=== PATIENT | female | born 1945 | race African-American/Black ===

== ENCOUNTER 2018-08-25 10:58 | Inpatient (IN) | payer OTHER ==
[~2018-08-25] VITALS: Ht 167.6 cm; Wt 123.1 kg
[2018-08-25] VITALS (8 sets, daily range): BP systolic 109–231; BP diastolic 54–129
[~2018-08-25 10:58] MED LIST: AMLODIPINE BESY10 MG PO; ASPIRIN81 M2 PO; B-COMPLEX PLUS1 EACH; BAYER CHEWABLE81 MG PO; BENICAR20 MG PO; CARVEDILOL12.5 MG PO; CIPROFLOXACIN500 M1 PO; CIPROFLOXACIN500 M3 PO; COZAAR 50 MG TA50 M2 PO; GARLIQUE5000 MCG PO; HTN MED PO; HYDRALAZINE 10M10 MG PO; IBUPROFEN 600600 M1 PO; KLOR-CON 10 ER10 MEQ PO; LOPRESSOR25 PO; MOBIC7.5 M1 PO; NORCO 5-325 TA1 EACH PO; NORVASC 5 MG TAB5 MG PO; OMEPRAZOLE20 M1 PO; PEPCID40 MG PO; PRILOSEC 20 MG20 MG PO; PRINIVIL5 MG PO; PROTONIX40 M2 PO; ROBAXIN 750 MG750 M1 PO; VITAMIN C120 GM PO; VITAMIN C500 MG; VITAMIN D1000 UNI1 PO; ZOFRAN4 MG PO
[2018-08-25] MEDS ORDERED: HYDROCHLOROTHIA25 M2 PO (11:09)
[2018-08-25] MEDS ORDERED: SUPER B-50 COM1 EACH PO (11:09)
[2018-08-25] MEDS ORDERED: VITAMINC500 PO (11:10)
[2018-08-25 11:35] LABS: ANION GAP 9 mmol/L (7-16); BUN 12 mg/dL (7-18); CALCIUM 9.6 mg/dL (8.5-10.1); CHLORIDE 100 mmol/L (98-107); CO2 29 mmol/L (21-32); GLUCOSE 109 mg/dL (74-106); POTASSIUM 4.1 mmol/L (3.5-5.1); SODIUM 138 mmol/L (136-145)
[2018-08-25 11:44] LABS: HEMATOCRIT 42.3 % (37.0-47.0); HEMOGLOBIN 14.7 gm/dL (12.0-15.0); MCH 33.3 pg (26.0-34.0); MCHC 34.7 g/dL (28.0-37.0); RBC 4.4 mil/uL (4.20-5.00); RDW 13.9 % (10.5-14.5); WBC 5.5 thou/uL (4.0-11.0)
[2018-08-25 11:46] LABS: ALBUMIN 3.8 g/dL (3.4-5.0); SGOT 21 U/L (15-37); SGPT 26 U/L (30-65); TOTAL BILIRUBIN 0.6 mg/dL (<0.1-1.0); TROPONIN-I <0.06 ng/mL (<0.06)
[2018-08-25] MEDS ORDERED: HYDRALAZINE 10M10 MG PO (13:01)
--- NOTE | 2018-08-25 15:56 | NUR ---
PT ORIENT TO ROOM AND UNIT. BED LOW AND LOCKED, SIDE RAILS UPX 3, CALL LIGHT IN REACH. CARDENE GTT INFUSION. WILL CONTINUE TO ASSESS.
--- NOTE | 2018-08-25 17:14 | EKG ---
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: LUCY : 1945 Requested By: Edison Reeves Order Number: [id number] MD: Cody Denton Measurements Intervals [place] Rate: 69 P: 67 [place]: 141 QRS: 52 QRSD: 102 T: 161 QT: 400 QTc: 429 Interpretive Statements Sinus rhythm Abnormal T, consider ischemia, lateral leads Compared to ECG 03/20/2016 08:21:56 No significant change was found Electronically Signed On 08-25-2018 17:14:09 CDT by Cody Denton [email or web address] ��������������������������������������������� <ELECTRONICALLY SIGNED> ���������������������������������������� By: Cody Denton MD, [facility] ��������������������������������������������� 08/25/18 1714 1115 1115 Cody Denton MD, [facility] /EPI
--- NOTE | 2018-08-25 17:31 | NUR ---
ABLE TO BRING PT'S BP DPWN WITH CARDENE GTT WHICH IS NOW TURNED OFF.
[2018-08-25] MEDS ORDERED: BENTYL 10 MG CA10 M1 PO (22:17)
[2018-08-26 00:48] VITALS: BP 132/52
--- NOTE | 2018-08-26 01:30 | NUR ---
ASSESSMENTS CHARTED. C/O ABDOMINAL CRAMPS AND BILATERAL LEG CRAMPS. SET UP KPAD HEATING PAD. PLAN OF CARE TO HAVE ULTRASOUND OF RENAL ARTERY IN AM.
[2018-08-26 04:42] LABS: ALBUMIN 3.3 g/dL (3.4-5.0); ANION GAP 9 mmol/L (7-16); BUN 16 mg/dL (7-18); CALCIUM 8.5 mg/dL (8.5-10.1); CHLORIDE 99 mmol/L (98-107); CO2 27 mmol/L (21-32); CREATININE 1.3 mg/dL (0.6-1.0); GLUCOSE 107 mg/dL (74-106); PHOSPHORUS 4.3 mg/dL (2.5-4.9); POTASSIUM 3.3 mmol/L (3.5-5.1); SODIUM 135 mmol/L (136-145); TROPONIN-I <0.06 ng/mL (<0.06)
[2018-08-26 05:35] VITALS: BP 136/48
[2018-08-26 08:11] VITALS: BP 141/56
[2018-08-26] MEDS ORDERED: TRANDATE 200 M200 M1 PO (08:46)
--- NOTE | 2018-08-26 09:15 | 2DMMODE ---
[facility] [address] [place] [address] 2 D/M-MODE ECHOCARDIOGRAM Name: KORY FRANK LOLIS Room #: 213-P ADM IN M.R.#: [id number] ������������� Admission: 08/25/18 ������������� Attend Phys: Sneha Martinez Discharge: ��� ������������� ��� Date of : 49 Date of Service: 08/26/18 0915 �� Report #: [id number] �������� ��������������������������������������������[id number] THIS REPORT FOR: //name// APPROVED REPORT Study performed: 08/26/2018 08:15:04 EXAM: Comprehensive 2D, Doppler, and color-flow Echocardiogram Patient Location: Echo lab Room #: 213 Status: routine BSA: 2.22 HR: 67 bpm BP: 136/48 mmHg Rhythm: NSR Other Information Study Quality: Adequate Technically limited study due to morbid obesity. Indications Uncontrolled HTN (230s/130s) Echo Enhancing Agent Indication: Endocardial border delineation Agent(s) / Amount(s) Used: Optison 4 cc 2D Dimensions RVDd: 35.87 mm IVSd: 15.00 (7-11mm) LVOT Diam: 19.58 (18-24mm) LVDd: 44.00 mm PWd: 14.00 (7-11mm) Ascending Ao: 36.25 (22-36mm) LVDs: 23.22 (25-40mm) Aortic Root: 33.97 mm Volumes Left Atrial Volume (Systole) Single Plane 4CH: 72.68 mL Single Plane 2CH: 81.28 mL LA ESV Index: 37.00 mL/m2 Aortic Valve AoV Peak Axel.: 1.85 m/s AO Peak Gr.: 13.68 mmHg LVOT Max P.91 mmHg LVOT Max V: 1.57 m/s [facility] [place] [address] 2 D/M-MODE ECHOCARDIOGRAM Name: KORY FRANK Room #: 213-P [facility] ..#: [id number] ������������� Admission: 08/25/18 ������������� Attend Phys: Sneha Martinez Discharge: ��� ������������� ��� Date of : 49 Date of Service: 08/26/18 0915 �� Report #: [id number] �������� ��������������������������������������������[id number] VELMA Vmax: 2.56 cm2 Mitral Valve E/A Ratio: 0.6 MV Decel. Time: 392.08 ms MV E Max Axel.: 0.56 m/s MV A Axel.: 0.87 m/s MV PHT: 113.70 ms IVRT: 92.27 ms Pulmonary Valve PV Peak Axel.: 1.05 m/s PV Peak Gr.: 4.37 mmHg Pulmonary Vein P Vein S: 0.59 m/s P Vein A: 0.29 m/s P Vein D: 0.33 m/s P Vein A Dur.: 110.7 msec P Vein S/D Ratio: 1.79 Tricuspid Valve TR Peak Axel.: 2.41 m/s RAP Estimate: 5.00 mmHg TR Peak Gr.: 23.15 mmHg PA Pressure: 28.00 mmHg Left Ventricle The left ventricle is normal size. There is normal LV segmental wall motion. Moderate concentric left ventricular hypertrophy. Left ventricular systolic function is hyperdynamic. LVEF is 70%. Mild diastolic dysfunction is present (impaired relaxation pattern). Right Ventricle The right ventricle is normal size. The right ventricular systolic function is normal. Atria Left atrium is mildly dilated. The right atrium size is normal. Aortic Valve The aortic valve is normal in structure. No aortic regurgitation is present. There is no aortic valvular stenosis. Mitral Valve The mitral valve is normal in structure. There is no mitral valve regurgitation noted. No evidence [place] [address] 2 D/M-MODE ECHOCARDIOGRAM Name: KORY FRANK Room #: 213-P ADM IN M.R.#: [id number] ������������� Admission: 08/25/18 ������������� Attend Phys: Sneha Martinez Discharge: ��� ������������� ��� Date of : 49 Date of Service: 08/26/18 0915 �� Report #: [id number] �������� ��������������������������������������������[id number] Tricuspid Valve The tricuspid valve is normal in structure. Mild tricuspid regurgitation. Estimated PAP is 28mmHg. Pulmonic Valve The pulmonary valve is normal in structure. Trace pulmonic regurgitation. Great Vessels The aortic root is normal in size. The ascending aorta is normal in size. IVC is normal in size and collapses >50% with inspiration. Pericardium Possible small pericardial effusion. <Conclusion> The left ventricle is normal size. LVEF is 70%. Left atrium is mildly dilated. The aortic valve is normal in structure. The mitral valve is normal in structure. The pulmonary valve is normal in structure. Trace pulmonic regurgitation. Possible small pericardial effusion. ��������������������������������������������� <ELECTRONICALLY SIGNED> ���������������������������������������� By: Christiano Osei MD ��������������������������������������������� 08/26/18914 4 4 Christiano Osei MD /INF
[2018-08-26 10:41] VITALS: BP 141/56
--- NOTE | 2018-08-26 11:01 | NUR ---
ASSUMED CARE AT 0700. PT A&OX4. PT HAD ECHO AND RENAL ULTRA SOUND THIS AM. PT BEING DISCHARGED TO HOME. PT UP AD DENY IN ROOM, DENIES CP, DENIES SOA. IV REMOVED. PT GIVEN PRESCRIPTION AND D/C PAPERWORK. PT STATES NO QUESTIONS AT THIS TIME. PT STATES SHE UNDERSTANDS SHE NEEDS TO MAKE A FOLLOW UP APPOINTMENT WITH HER PCP. PT STATES SHE IS ABLE TO MONITOR/TAKE HER OWN BLOOD PRESSURE AT HOME.
== END 2018-08-26 11:09 | disposition home or self-care (01) | DRG 304 ==
LOC: ER 10:58 → EROBS 14:00 → 2N 14:00 → ENTRNSPT 08-26 10:49 → EDTRNSPTSTS 08-26 10:59 → DELTRNSPT 08-26 11:02 → 2N 08-26 11:09
PROVIDERS: Physician Assistant; ADMIT Hospitalist
DX: I16.1 Hypertensive emergency (principal); N17.0 Acute kidney failure with tubular necrosis; Z77.22 Contact with and (suspected) exposure to environmental tobacco smoke (acute) (chronic); I10 Essential (primary) hypertension; Z88.2 Allergy status to sulfonamides; Z86.73 Personal history of transient ischemic attack (TIA), and cerebral infarction without residual deficits; Z79.899 Other long term (current) drug therapy
CPT/HCPCS: 10081

== ENCOUNTER 2018-09-27 10:43 | Emergency (ER) | payer OTHER ==
[~2018-09-27] VITALS: Ht 167.6 cm; Wt 115.7 kg
[~2018-09-27 10:43] MED LIST changes: +BENTYL 10 MG CA10 M1 PO; +HYDROCHLOROTHIA25 M2 PO; +SUPER B-50 COM1 EACH PO; +TRANDATE 200 M200 M1 PO; +VITAMINC500 PO
[2018-09-27] MEDS ORDERED: OMEPRAZOLE 20 M20 M1 PO (10:48)
[2018-09-27 11:25] LABS: ABSOLUTE NEUTROPHILS 2.4 thou/uL (1.4-8.2); BASOPHILS 1.1 % (0.0-2.0); EOSINOPHILS 2.8 % (0.0-3.0); HEMATOCRIT 39.3 % (37.0-47.0); HEMOGLOBIN 13.4 gm/dL (12.0-15.0); LYMPHOCYTES 41.9 % (24.0-44.0); MCH 33.1 pg (26.0-34.0); MCHC 34.2 g/dL (28.0-37.0); MCV 96.8 fL (80.0-100.0); MONOCYTES 8.3 % (1.0-8.0); PLATELET COUNT 272 thou/uL (150-400); POLYS 45.9 % (36.0-66.0); RBC 4.06 mil/uL (4.20-5.00); RDW 13.7 % (10.5-14.5); WBC 5.1 thou/uL (4.0-11.0)
[2018-09-27 11:31] LABS: ANION GAP 8 mmol/L (7-16); BUN 11 mg/dL (7-18); CHLORIDE 105 mmol/L (98-107); CO2 26 mmol/L (21-32); GLUCOSE 111 mg/dL (74-106); SODIUM 139 mmol/L (136-145)
[2018-09-27 11:40] LABS: ALBUMIN 3.6 g/dL (3.4-5.0); LIPASE 480 U/L (73-393); SGOT 23 U/L (15-37); SGPT 26 U/L (30-65); TOTAL BILIRUBIN 0.5 mg/dL (<0.1-1.0); TOTAL PROTEIN 7.5 g/dL (6.4-8.2); TROPONIN-I <0.06 ng/mL (<0.06)
[2018-09-27 13:50] VITALS: BP 232/113
--- NOTE | 2018-09-28 09:30 | EKG ---
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 : 1945 Requested By: Bear Tucker Order Number: [id number] MD: Devan Ordoñez Measurements Intervals [place] Rate: 69 P: 63 [place]: 143 QRS: 44 QRSD: 99 T: 158 QT: 422 QTc: 452 Interpretive Statements Sinus rhythm Abnormal T, consider ischemia, lateral leads Compared to ECG 08/25/2018 11:15:28 No significant change Electronically Signed On 09-28-2018 9:30:10 CDT by Devan Ordoñez [email or web address] ��������������������������������������������� <ELECTRONICALLY SIGNED> ���������������������������������������� By: Devan Ordoñez MD ��������������������������������������������� 09/28/18 0930 1155 1155 MD CÉSAR Navarro
== END 2018-09-27 14:11 | disposition home or self-care (01) ==
LOC: ER 10:43
PROVIDERS: Emergency Medicine
DX: R06.00 Dyspnea, unspecified (principal); R60.0 Localized edema; R94.5 Abnormal results of liver function studies; R11.0 Nausea; I10 Essential (primary) hypertension; K58.9 Irritable bowel syndrome, unspecified; Z77.22 Contact with and (suspected) exposure to environmental tobacco smoke (acute) (chronic); Z88.2 Allergy status to sulfonamides; Z86.73 Personal history of transient ischemic attack (TIA), and cerebral infarction without residual deficits

== ENCOUNTER 2020-06-03 21:28 | Emergency (ER) | payer OTHER ==
[~2020-06-03] VITALS: Ht 167.6 cm; Wt 113.4 kg
[~2020-06-03 21:28] MED LIST changes: +OMEPRAZOLE 20 M20 M1 PO
[2020-06-03] MEDS ORDERED: CARVEDILOL12.5 MG PO (21:48)
[2020-06-03] MEDS ORDERED: BENICAR20 MG PO (21:48)
[2020-06-03] MEDS ORDERED: PROTONIX40 M4 PO (21:49)
[2020-06-03] MEDS ORDERED: FUROSEMIDE 20 M20 MG PO (21:50)
[2020-06-03 22:07] LABS: ABSOLUTE NEUTROPHILS 1.6 thou/uL (1.4-8.2); HEMATOCRIT 41.4 % (37.0-47.0); HEMOGLOBIN 13.8 gm/dL (12.0-15.0); LYMPHOCYTES 56.2 % (24.0-44.0); MCH 32.7 pg (26.0-34.0); MCHC 33.3 g/dL (28.0-37.0); MONOCYTES 12.5 % (1.0-8.0); PLATELET COUNT 266 thou/uL (150-400); POLYS 31.3 % (36.0-66.0); RBC 4.22 mil/uL (4.20-5.00); RDW 13.9 % (10.5-14.5)
[2020-06-03 22:09] LABS: URINE BILIRUBIN NEGATIVE (Negative); URINE BLOOD NEGATIVE (Negative); URINE CLARITY CLEAR; URINE COLOR YELLOW; URINE GLUCOSE-RANDOM* NEGATIVE (Negative); URINE KETONES NEGATIVE (Negative); URINE LEUKOCYTES-REFLEX NEGATIVE (Negative); URINE NITRITE-REFLEX NEGATIVE (Negative); URINE PROTEIN (DIPSTICK) NEGATIVE (Negative); URINE SPECIFIC GRAVITY 1.015 (1.005-1.035); URINE UROBILINOGEN 0.2 E.U./dl (0.2-1.0)
[2020-06-03 22:12] LABS: ANION GAP 11 mmol/L (7-16); BUN 12 mg/dL (7-18); CHLORIDE 103 mmol/L (98-107); CO2 25 mmol/L (21-32); CREATININE 1.1 mg/dL (0.6-1.0); GLUCOSE 105 mg/dL (74-106); POTASSIUM 4.1 mmol/L (3.5-5.1); SODIUM 139 mmol/L (136-145)
[2020-06-03 22:22] LABS: ALBUMIN 3.6 g/dL (3.4-5.0); LIPASE 87 U/L (73-393); SGOT 15 U/L (15-37); SGPT 20 U/L (30-65); TOTAL BILIRUBIN 0.7 mg/dL (0.2-1.0); TOTAL PROTEIN 7.7 g/dL (6.4-8.2); TROPONIN-I <0.06 ng/mL (<0.06)
[2020-06-03 23:07] VITALS: BP 162/92
--- NOTE | 2020-06-05 07:43 | EKG ---
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: [email or web address] : 1945 Requested By: Allen Sadler Order Number: [id number] MD: Albert Diez Measurements Intervals [place] Rate: 71 P: 66 [place]: 139 QRS: 57 QRSD: 118 T: 162 QT: 418 QTc: 455 Interpretive Statements Sinus rhythm Probable left atrial enlargement Abnrm T, consider ischemia, anterolateral lds Minimal ST elevation, anterior leads Compared to ECG 09/27/2018 11:55:18 ST (T wave) deviation now present T-wave abnormality no longer present Possible ischemia still present Electronically Signed On 06-05-2020 7:43:32 QUALITY ASSURANCE SUPERVISOR TRIM by Albert Diez [email or web address] <ELECTRONICALLY SIGNED> By: Albert Diez MD, FAC 06/05/20 0743 01 01 Albert Diez MD, [facility] /EPI
== END 2020-06-03 23:10 | disposition home or self-care (01) ==
LOC: ER 21:28
PROVIDERS: Emergency Medicine
DX: I10 Essential (primary) hypertension (principal); Z79.899 Other long term (current) drug therapy; Z88.2 Allergy status to sulfonamides

== ENCOUNTER 2021-05-24 16:57 | Inpatient (IN) | payer OTHER ==
[~2021-05-24] VITALS: Ht 167.6 cm; Wt 113.4 kg
[~2021-05-24 16:57] MED LIST changes: +FUROSEMIDE 20 M20 MG PO; +PROTONIX40 M4 PO
[2021-05-24 17:20] VITALS: BP 248/109
[2021-05-24 17:46] LABS: ABSOLUTE NEUTROPHILS 2.5 thou/uL (1.4-8.2); BASOPHILS 1.9 % (0.0-2.0); EOSINOPHILS 3.4 % (0.0-3.0); HEMATOCRIT 40.5 % (37.0-47.0); HEMOGLOBIN 13.5 gm/dL (12.0-15.0); MCHC 33.3 g/dL (28.0-37.0); MCV 99.2 fL (80.0-100.0); MONOCYTES 7.5 % (1.0-8.0); PLATELET COUNT 268 thou/uL (150-400); POLYS 49.2 % (36.0-66.0); RBC 4.08 mil/uL (4.20-5.00); RDW 13.4 % (10.5-14.5); WBC 5.1 thou/uL (4.0-11.0)
[2021-05-24] MEDS ORDERED: OLMESARTAN MEDO20 MG PO (17:50)
[2021-05-24 17:52] LABS: URINE BILIRUBIN NEGATIVE (Negative); URINE BLOOD TRACE (Negative); URINE CLARITY CLEAR; URINE COLOR YELLOW; URINE GLUCOSE-RANDOM* NEGATIVE (Negative); URINE KETONES NEGATIVE (Negative); URINE LEUKOCYTES-REFLEX NEGATIVE (Negative); URINE NITRITE-REFLEX NEGATIVE (Negative); URINE PROTEIN (DIPSTICK) NEGATIVE (Negative); URINE SPECIFIC GRAVITY 1.015 (1.005-1.035); URINE UROBILINOGEN 0.2 E.U./dl (0.2-1.0)
[2021-05-24 17:55] LABS: CALCIUM 9.3 mg/dL (8.5-10.1); POTASSIUM 3.8 mmol/L (3.5-5.1)
[2021-05-24 18:07] LABS: ALBUMIN 3.7 g/dL (3.4-5.0); DIRECT BILIRUBIN 0.2 mg/dL (<0.1-0.2); MAGNESIUM 1.9 mg/dL (1.8-2.4); PHOSPHORUS 3.2 mg/dL (2.6-4.7); TOTAL BILIRUBIN 0.7 mg/dL (0.2-1.0); TOTAL PROTEIN 7.5 g/dL (6.4-8.2)
--- NOTE | 2021-05-24 19:05 | NUR ---
PT REPORTS THAT SHE HAS BEEN HAVING "GI ISSUES" AND WAS SUPPOSED TO GET A COLONOSCOPY ON 05/14, REPORTS THEY WERE NOT ABLE TO DO THE PROCEDURE DUE TO ELEVATED BP. PT REPORTS WHEN SHE HAS "GI FLARE UPS" SHE HAS INCREASED PAIN AND HER BP IS ELEVATED.
[2021-05-24 20:03] LABS: CHOLESTEROL 195 mg/dL (<200); HDL CHOLESTEROL 48 mg/dL (>40); LDL CHOLESTEROL 132 mg/dL (<100); SERUM ASSESSMENT Clear; TC:HDL 4.1 Ratio (Not establshd); TRIGLYCERIDE 79 mg/dL (<150); VLDL 16 mg/dL (<40)
[2021-05-25 07:08] LABS: GLYCOHEMOGLOBIN (HGB A1C) 6.1 % (4.8-5.6)
--- NOTE | 2021-05-25 08:02 | NUR ---
THIS RN ASSUMES CARE OF PT. PT MOVED TO 24. PHYSICIAN AT BEDSIDE. PT DENIES NEEDS. VSS.
[2021-05-25 08:30] VITALS: BP 148/77
--- NOTE | 2021-05-25 09:51 | 2DMMODE ---
[facility] [place] [address] 2 D/M-MODE ECHOCARDIOGRAM Name: KORY FRANK Room #: 170-8 ADM IN M.R.#: [id number] Admission: 05/24/21 Attend Phys: Pato Flores MD Discharge: Date of : 49 Report #: [id number] THIS REPORT FOR: cc: Parish Gurrola MD, [place] S. MD Park, Jin S. MD ~ APPROVED REPORT Study performed: 05/25/2021 09:04:58 EXAM: Comprehensive 2D, Doppler, and color-flow Echocardiogram Patient Location: ER Room #: 23 Status: routine BSA: 2.20 HR: 57 bpm BP: 148/77 mmHg Rhythm: Bradycardia Other Information Study Quality: Technically Difficult Technically limited study due to body habitus. Indications Diabetes Chest Pain Hypertension/HDD 2D Dimensions IVSd: 14.29 (7-11mm) LVOT Diam: 19.62 (18-24mm) LVDd: 39.60 mm PWd: 13.13 (7-11mm) Ascending Ao: 31.69 (22-36mm) LVDs: 22.23 (25-40mm) Left Atrium: 36.39 (27-40mm) Aortic Root: 31.72 mm IVC: 18.00 mm Aortic Valve AoV Peak Axel.: 1.58 m/s AO Peak Gr.: 9.92 mmHg LVOT Max P.32 mmHg LVOT Max V: 1.15 m/s VELMA Vmax: 2.21 cm2 Mitral Valve [facility] [address] [place] [address] 2 D/M-MODE ECHOCARDIOGRAM Name: KORY FRANK Room #: 170-8 ADM IN M.R.#: [id number] Admission: 05/24/21 Attend Phys: Pato Flores, Discharge: Date of : 49 Report #: [id number] E/A Ratio: 0.7 MV Decel. Time: 440.08 ms MV E Max Axel.: 0.57 m/s MV A Axel.: 0.83 m/s MV PHT: 127.62 ms IVRT: 161.48 ms Pulmonary Valve PV Peak Axel.: 0.86 m/s PV Peak Gr.: 2.94 mmHg Pulmonary Vein P Vein S: 0.41 m/s P Vein A: 0.28 m/s P Vein D: 0.37 m/s P Vein A Dur.: 92.3 msec P Vein S/D Ratio: 1.11 Tricuspid Valve TR Peak Axel.: 2.43 m/s TR Peak Gr.: 23.61 mmHg PA Pressure: 29.00 mmHg Left Ventricle The left ventricle is normal size. There is normal LV segmental wall motion. Mild concentric left ventricular hypertrophy. The left ventricular systolic function is normal. LVEF is 60%. Grade I - abnormal relaxation pattern. Right Ventricle The right ventricle is normal size. The right ventricular systolic function is normal. Atria The left atrium size is normal. The right atrium size is normal. Aortic Valve The aortic valve is normal in structure. No aortic regurgitation is present. There is no aortic valvular stenosis. Mitral Valve The mitral valve is normal in structure. There is no mitral valve regurgitation noted. No evidence of mitral valve stenosis. Tricuspid Valve The tricuspid valve is normal in structure. There is trace tricuspid regurgitation. Estimated PAP 29 mmHg. There is no pulmonary hypertension. [facility] [place] [address] 2 D/M-MODE ECHOCARDIOGRAM Name: KORY FRANK Room #: 170-8 ADM IN M.R.#: [id number] Admission: 05/24/21 Attend Phys: Pato Flores, Discharge: Date of : 49 Report #: [id number] Pulmonic Valve The pulmonary valve is normal in structure. There is no pulmonic valvular regurgitation. Great Vessels The aortic root is normal in size. IVC is normal in size and collapses >50% with inspiration. Pericardium There is no pericardial effusion. <Conclusion> The left ventricle is normal size. Mild concentric left ventricular hypertrophy. The left ventricular systolic function is normal. Grade I - abnormal relaxation pattern. The right ventricle is normal size. The left atrium size is normal. The aortic valve is normal in structure. There is no mitral valve regurgitation noted. There is trace tricuspid regurgitation. Estimated PAP 29 mmHg. <ELECTRONICALLY SIGNED> By: Devan Ordoñez MD 05/25/21950 0 0 Devan Ordoñez MD /INF
--- NOTE | 2021-05-25 12:18 | NUR ---
WHEN THIS RN ATTEMPTS TO CHECK POC GLUCOSE, PT REFUSES AND STATES "IM NOT DIABETIC, WHY IS EVERYONE CHECKING MY SUGAR?".
--- NOTE | 2021-05-25 13:05 | NUR ---
REPORT TO MICHELLE
--- NOTE | 2021-05-25 15:55 | NUR ---
PT ADMITTED RELATED TO CHEST PAIN, HYPERTENSIVE EMERGENCY. CM REVIEWED CHART AND SPOKE WITH CARE TEAM. PATIENT LIVES IN A HOUSE WITH HER . PATIENT IS INDEPENDENT WITH ADLS/IADLS. PATIENT REPORTS THAT SHE DOESN'T USE AN AD IN THE HOUSE BUT WILL USE A CANE IN THE COMMUNITY. PATIENT HAS A SAFE SHOWER SET-UP. PT INDICATED NO PRIOR HH OR OP THERAPY. PT INDICATED PCP IS DR. SHEEHAN. PT INDICATED SHE PLANS TO RETUN HOME ONCE MEDICALLY STABLE. NO NEEDS ANTICAPTED. CARE TEAM INDICATED PT MAY BE DC READY TOMORROW. NO OTHER CM INTERVENTION ANTIPATED.
[2021-05-26 05:15] VITALS: BP 111/57; BP 134/67
[2021-05-26 09:09] VITALS: BP 169/67
--- NOTE | 2021-05-26 10:07 | NUR ---
ORDERS RECEIVED FOR PT EVAL AND TREAT. Pt ADMITTED W/ CP AND HYPERTENSIVE URGENCY. Pt FROM HOME W/ . USES CANE IN COMMUNITY BUT NOT AT HOME. HAS SOME STAIRS TO ENTER BUT CAN AVOID INSIDE STAIRS. DENIED RECENT FALLS. Pt HAS BEEN GETTING UP TO BATHROOM DOWN THE DIEGO IN ED ON HER OWN. VITALS STABLE, BP ELEVATED BUT HASN'T HAD MORNING MEDS YET. HAS NEUROPATHY IN FEET AND R LATERAL THIGH PAIN FROM SPINAL STENOSIS. R SHOULDER BLADE PAIN STILL ALSO W/ HEATING PAD IN PLACE. Pt DENIES CONCERNS W/ MOBILITY AT THIS TIME. DECLINES NEED FOR PT. ACUTE PT TO SIGN OFF.
--- NOTE | 2021-05-26 10:51 | EKG ---
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
[2021-05-26 11:36] VITALS: BP 154/80
[2021-05-26 13:27] VITALS: BP 154/80
[2021-05-26] MEDS ORDERED: NITROGLYCERIN0.4 MG SUBLING (14:21)
[2021-05-26] MEDS ORDERED: CARVEDILOL25 MG PO (14:22)
[2021-05-26] MEDS ORDERED: BENICAR40 MG PO (14:23)
[2021-05-26 14:29] VITALS: BP 154/80
[2021-05-26 14:44] VITALS: BP 144/70
== END 2021-05-26 14:39 | disposition home or self-care (01) | DRG 305 ==
LOC: ER 16:57 → EROBS 19:35
PROVIDERS: Emergency Medicine; Nurse Practitioner Family; ADMIT Internal Medicine; ATTEND Internal Medicine
DX: I16.1 Hypertensive emergency (principal); Z68.41 Body mass index [BMI] 40.0-44.9, adult; I10 Essential (primary) hypertension; K21.9 Gastro-esophageal reflux disease without esophagitis; Z77.22 Contact with and (suspected) exposure to environmental tobacco smoke (acute) (chronic); E78.5 Hyperlipidemia, unspecified; E88.81 Metabolic syndrome and other insulin resistance; E11.65 Type 2 diabetes mellitus with hyperglycemia; K58.1 Irritable bowel syndrome with constipation; Z20.822 Contact with and (suspected) exposure to COVID-19; E66.01 Morbid (severe) obesity due to excess calories; Z79.899 Other long term (current) drug therapy; Z88.2 Allergy status to sulfonamides; Z86.73 Personal history of transient ischemic attack (TIA), and cerebral infarction without residual deficits; Z83.3 Family history of diabetes mellitus; Z82.49 Family history of ischemic heart disease and other diseases of the circulatory system; Z90.49 Acquired absence of other specified parts of digestive tract; Z90.711 Acquired absence of uterus with remaining cervical stump